=== PATIENT | male | born 1980 | race Hispanic/Latino ===

== ENCOUNTER 2017-10-06 13:35 | Emergency (ER) | payer SELFPAY ==
[~2017-10-06] VITALS: Ht 167.6 cm; Wt 59.0 kg
[2017-10-06 13:48] LABS: HEMATOCRIT 40.6 % (39.0-50.0); HEMOGLOBIN 14.3 g/dl (14.0-18.0); IMMATURE GRANULOCYTES 0.1 % (0.0-1.0); MEAN CORPUSCULAR HGB 31.7 pG CALC (26.0-32.0); MEAN CORPUSCULAR HGB CONC 35.2 g/L CALC (32.0-36.0); NEUT# 3.11 thou/uL (1.82-7.42); RED BLOOD COUNT 4.51 mill/uL (4.70-6.10); RED CELL DISTRI WIDTH 12.6 % (11.5-15.5)
[2017-10-06 14:04] LABS: ALKALINE PHOSPHATASE 121 u/l (38-126); ANION GAP 23 (6-22 (CALC)); BILIRUBIN, TOTAL 0.6 mg/dL (0.0-1.4); BUN 8 mg/dL (9-20); BUN/CREATININE RATIO 13 (12-20 (CALC)); CARBON DIOXIDE 23 mmol/l (22-30); CHLORIDE 98 mmol/l (95-108); CREATININE 0.6 mg/dL (0.7-1.3); GFR > 60 ML/MIN (>=60 (CALC)); GFR FOR AFR.AMER. > 60 ML/MIN (>=60 (CALC)); LIPASE 520 u/l (23-300); POTASSIUM 3.9 mmol/l (3.5-5.1); SGOT/AST 135 u/l (17-59); SGPT/ALT 126 u/l (21-72); SODIUM 141 mmol/l (137-146); TOTAL PROTEIN 8.4 g/dL (6.3-8.2)
[2017-10-06 14:14] LABS: ETHYL ALCOHOL 392 mg/dl (0-30)
[2017-10-06 15:51] LABS: URINE BILIRUBIN - DIPSTICK NEGATIVE (NEGATIVE); URINE BLOOD DIPSTICK NEGATIVE (NEGATIVE); URINE COLOR YELLOW; URINE GLUCOSE - DIPSTICK NEGATIVE (NEGATIVE); URINE KETONE NEGATIVE (NEGATIVE); URINE LEUK ESTERASE NEGATIVE (NEGATIVE); URINE NITRITE - DIPSTICK NEGATIVE (Negative); URINE PROTEIN - DIPSTICK NEGATIVE (NEG-TRACE); URINE SPECIFIC GRAVITY <=1.005; URINE UROBILINOGEN - DIPSTICK 0.2 E.U./dL (0.2)
[2017-10-06 15:52] LABS: URINE CLARITY CLEAR
[2017-10-06] MEDS ORDERED: PREVACID30 M1 PO (20:43)
[2017-10-06] MEDS ORDERED: ZOFRAN ODT4 MG PO (20:43)
[2017-10-06 20:49] VITALS: BP 121/78
== END 2017-10-06 20:49 | disposition home or self-care (01) | DRG 696 ==
LOC: EDBD 13:35 → ED 13:35
PROVIDERS: Family Medicine
DX: R33.9 Retention of urine, unspecified (principal); F10.129 Alcohol abuse with intoxication, unspecified; Z53.20 Procedure and treatment not carried out because of patient's decision for unspecified reasons

== ENCOUNTER 2024-02-09 18:31 | Emergency (ER) | payer OTHER ==
[~2024-02-09] VITALS: Ht 167.6 cm; Wt 81.0 kg
[~2024-02-09 18:31] MED LIST: PREVACID30 M1 PO; ZOFRAN ODT4 MG PO
[2024-02-09] MEDS ORDERED: KETOROLAC TROMETHAMINE 30 MG/ML SDV IV ONE (18:40)
[2024-02-09 18:50] LABS: BASO% 0.3 % (0-3); EOS% 1.2 % (0-8); HEMATOCRIT 40.4 % (39.0-50.0); HEMOGLOBIN 14.1 g/dl (14.0-18.0); IMMATURE GRANULOCYTES 0.2 % (0.0-5.0); LYMPH% 15.2 % (15-41); MEAN CORPUSCULAR HGB 30.7 pG CALC (26.0-32.0); MEAN CORPUSCULAR HGB CONC 34.9 g/dL CAL (32.0-36.0); NEUT# 9.46 thou/uL (1.82-7.42); NEUT% 77.1 % (42-76); RED BLOOD COUNT 4.59 mill/uL (4.70-6.10); RED CELL DISTRI WIDTH 12.2 % (11.5-15.5)
[2024-02-09 19:15] LABS: ALBUMIN 4.5 g/dL (3.2-5.0); BILIRUBIN, TOTAL 0.5 mg/dL (0.2-1.3); CREATININE 1.1 mg/dL (0.7-1.3); POTASSIUM 3.5 mmol/l (3.5-5.1); TOTAL PROTEIN 7.7 g/dL (6.3-8.2)
[2024-02-09] MEDS ORDERED: MOTRIN800 MG PO (20:11)
[2024-02-09 22:00] VITALS: BP 124/71
[2024-02-09 22:31] VITALS: BP 108/69
[2024-02-09 23:00] VITALS: BP 122/58
[2024-02-09 23:28] VITALS: BP 122/58
== END 2024-02-09 23:28 | disposition home or self-care (01) | DRG 914 ==
LOC: ED 18:31
PROVIDERS: Emergency Medicine
DX: S39.81XA Other specified injuries of abdomen, initial encounter (principal); M79.604 Pain in right leg; M54.9 Dorsalgia, unspecified; F17.200 Nicotine dependence, unspecified, uncomplicated; V49.50XA Passenger injured in collision with unspecified motor vehicles in traffic accident, initial encounter
CPT/HCPCS: Q9967